=== PATIENT | male | born 1980 | race Caucasian/White ===

== ENCOUNTER 2022-08-02 05:34 | Outpatient (CLI) | payer BC ==
[~2022-08-02] VITALS: Ht 175.3 cm; Wt 81.6 kg
[2022-08-02] MEDS ORDERED: CITA40TA13 PO (12:56)
== END 2022-08-02 12:54 | disposition home or self-care (01) ==
LOC: PREOP 05:34
PROVIDERS: ATTEND Surgery
DX: Z01.818 Encounter for other preprocedural examination (principal)

== ENCOUNTER 2022-08-09 07:28 | Day surgery (SDC) | payer BC ==
[2022-08-09] VITALS (10 sets, daily range): BP systolic 107–119; BP diastolic 64–87
[~2022-08-09] VITALS: Ht 175.3 cm; Wt 81.8 kg
[~2022-08-09 07:28] MED LIST: CITA40TA13 PO
--- NOTE | 2022-08-09 07:59 | Progress Note-Pre Operative ---
Pre-Operative Progress Note Date of Available H&P: Jul 18, 2022 Date H&P Reviewed: Aug 09, 2022 Time H&P Reviewed: 07:58 History & Physical: H&P Reviewed, Patient Examed, No changes noted Pre-Operative Diagnosis: mass of scalp MICHAEL CHIRINOS DO Aug 09, 2022 07:59
[2022-08-09] MEDS ORDERED: ceFAZolin INJECTION 2,000 MG in NS (IVPB) 50 ML IV ONE (08:15)
[2022-08-09] MEDS: LACTATED RINGERS 1,000 ML IV PRN ×2 (08:31→09:21)
[2022-08-09] MEDS ORDERED: proPOfol 200 MG/20 ML (DIPRIVAN) VIAL IV ONE (08:37)
[2022-08-09] MEDS ORDERED: SEVOFLURANE (ULTANE) 15 ML INHAL SOLN ONE (08:37)
[2022-08-09] MEDS ORDERED: ONDANSETRON 4 MG/2 ML (SDV) Z0FRAN ONE (08:37)
[2022-08-09] MEDS ORDERED: LIDOCAINE PF 2% 5 ML (XYLOCAINE) VIAL ONE (08:37)
[2022-08-09] MEDS ORDERED: fentaNYL INJ 100 MCG/2 ML AMP ONE (08:37)
[2022-08-09] MEDS ORDERED: MIDAZOLAM 2 MG/2 ML (VERSED) VIAL ONE (08:38)
[2022-08-09] MEDS ORDERED: LIDOCAINE/EPI 2% 1:200,00 (XYLOCAINE) 20 ML VIAL ONE (08:45)
[2022-08-09] MEDS ORDERED: NEO/POLY/BAC (NEOSPORIN) OINT 15 GM TUBE ONE (09:30)
--- NOTE | 2022-08-09 09:39 | Discharge Inst-Simple/Standard ---
Discharge Inst-Standard Patient Instructions/Follow Up Plan of Care/Instructions/FU: 12-14 days Analisa Activity as Tolerated: Yes Discharge Diet: Regular Diet Other Inst to Patient Follow up Appt: Make appointment for 12-14 days Instructions: May shower in 24 hours, no tub bath or soaking. Use incentive spirometer at home as directed. No Smoking Skin/Wound Care: Keep clean and dry. Symptoms to Report: Appetite Changes, Extremity Discoloration, Numbness/Tingling, Swelling Increased, Bleeding Excessive, Eyesight Changes, Pain Increased, Urine Color Change, Constipation(Persistent), Fever over 101 degree F, Pain/Pressure in chest, Urinating Difficulty, Cough Up/Vomit Blood, Heart Beat Irreg/Pounding, Pain/Pressure in jaw, Vaginal Bleeding Increase, Cramps in feet or legs, Lightheadedness, Pain/Pressure in shoulder, Diarrhea(Persistent), Memory Changes Suddenly, Questions/Concerns, Weight gain consecutive days, Dizziness/Fainting, Nausea/Vomiting, Shortness of Breath, Weight gain over 2 pounds If questions or concerns contact your physician Or seek help at emergency department. MICHAEL CHIRINOS DO Aug 09, 2022 09:39
[2022-08-09] MEDS ORDERED: morphine INJ 10 MG/ML 1ML (SYR OR VIAL) IVP ONE (10:00)
[2022-08-09] MEDS ORDERED: ONDANSETRON 4 MG/2 ML (SDV) Z0FRAN IVP PRN (10:00)
--- NOTE | 2022-08-09 10:16 | Anesthesia-General Post-Op ---
General Patient Condition Mental Status/LOC: Same as Preop Cardiovascular: Satisfactory Nausea/Vomiting: Absent Respiratory: Satisfactory Pain: Controlled Complications: Absent Post Op Complications Complications None Follow Up Care/Instructions Patient Instructions None needed. Anesthesia/Patient Condition Patient Condition Patient is doing well, no complaints, stable vital signs, no apparent adverse anesthesia problems. No complications reported per nursing. SHELBY DAVIES DO Aug 09, 2022 10:16
--- NOTE | 2022-08-09 14:18 | OPERATIVE REPORT ---
DATE OF SERVICE: 08/09/2022 PREOPERATIVE DIAGNOSIS: Scalp mass. POSTOPERATIVE DIAGNOSIS: Scalp mass. PROCEDURE: Excision of scalp mass 1.3 cm and subcutaneous tissue. SURGEON: Michael Hauser DO ANESTHESIA: General. ESTIMATED BLOOD LOSS: Minimal. COMPLICATIONS: None. INDICATIONS: The patient is a 42-year-old male with a scalp mass. He understands risks and benefits of procedure and wished to proceed. Consent was signed in the chart. DESCRIPTION OF PROCEDURE: The patient was taken to the operating suite. He was prepped and draped in sterile fashion. Timeout was performed. Local site was infiltrated around the mass. A 15 blade scalpel was used to make a skin incision. Ankush were then used to dissect around the mass, which was cystic and was dissected around and removed, which was approximately 1.3 cm in diameter. Wound was then irrigated with copious amounts of irrigation. Skin was then closed using 3-0 Prolene suture. The area was washed, and dried and then antibiotic ointment was placed over it. The patient tolerated the procedure well without any complications, taken to recovery room in stable condition. We will follow followup in 12 to 14 days for suture removal. Any issues before that be seen at that time. Job ID: [id number] DocumentID: [id number] Dictated Date: 08/09/2022 09:41:08 Bingo Cashier Date: 08/09/2022 14:17:37 Dictated By: MICHAEL HAUSER DO
== END 2022-08-09 11:40 ==
LOC: SDC 07:28
PROVIDERS: ATTEND Surgery
DX: L72.0 Epidermal cyst (principal)
CPT/HCPCS: 87081